=== PATIENT | male | born 2000 | race Caucasian/White ===

== ENCOUNTER 2019-02-28 16:28 | Emergency (ER) | payer OTHER ==
[~2019-02-28] VITALS: Ht 177.8 cm; Wt 77.1 kg
--- NOTE | 2019-02-28 16:28 | NUR ---
BIBA. PER EMS, OVERDOSED ON UNKNOWN DRUGS. PER EMS, PT WAS IN A [facility] [employer] AND THAT THE PT COLLAPSED FROM THE CHAIR AND HIT THE BACK OF HEAD. PER EMS, RESPIRATIONS WAS AT 6BPM AND WAS GIVEN NARCAN 2MG X2 AND PT HAD TO BE BAGGED. PT IS AWAKE, SCREAMING, KICKING, SPITTING. C-COLLAR ON PRIOR TO ARRIVAL. FULL CLEAR SPEECH. ER AT BEDSIDE FOR ASSESSMENT.
--- NOTE | 2019-02-28 16:30 | NUR ---
PT PLACED ON FULL FOLDING MACHINE TENDER.
--- NOTE | 2019-02-28 16:32 | NUR ---
PTS PETCO2 IS 40
[2019-02-28 16:36] VITALS: BP 135/45
--- NOTE | 2019-02-28 16:38 | NUR ---
ATTEMPTED TO SPEAK WITH PT---PT EXTREMELY AGITATED, SPITTING ATTEMPTING TO BITE---CURSING AT STAFF, STATING, "I WANT TO GET THE FUCK OUT OF HERE" NASAL TRUMPET REMOVED FROM LEFT NARE---FULL CLEAR SPEECH SCREAMING CONTINOUSLY SPIT MASK APPLIED
--- NOTE | 2019-02-28 16:46 | NUR ---
SPIT MASK REMOVED---PT AGREED WILL NOT SPIT
--- NOTE | 2019-02-28 16:51 | NUR ---
X-RAY AT BEDSIDE
--- NOTE | 2019-02-28 16:55 | NUR ---
PT UNABLE TO AMBULATE STEADY. PT PLACED BACK TO BED, PLACED ON FULL ARMATURE BALANCER. SAFETY ENSURED. WILL CONTINUE TO MONITOR.
[2019-02-28] MEDS ORDERED: NACL 0.9% 1,000 ML IV ONE ×4 (17:10→20:30)
--- NOTE | 2019-02-28 17:55 | NUR ---
Katie delong in ED - 02/28/19 at 1813 by MED PT'S V/S IS AT 83/33, HR: 54, R: 7, 98% 2LPM NC. NOTIFIED DR JAMESON.
--- NOTE | 2019-02-28 17:55 | NUR ---
PT'S V/S IS AT 83/33, HR: 54, R: 7, 98% 2LPM NC. PUPILS PINPOINT AT THIS TIME. PT UNRESPONSIVE TO CHEST RUB. NOTIFIED DR JAMESON AND CHARGE NURSE.
--- NOTE | 2019-02-28 17:58 | NUR ---
IV NARCAN 2 MG GIVEN ORDERED
[2019-02-28] MEDS ORDERED: NALOXONE 0.4 MG/ML VIAL IVP ONE ×3 (18:00→19:20)
[2019-02-28] MEDS ORDERED: NALOXONE PFS 2 MG/2 ML SYR ONE (18:10)
--- NOTE | 2019-02-28 18:13 | NUR ---
PT RESPONSIVE TO TOUCH. PERRL BRISK 3MM. WILL CONTINUE TO MONITOR.
--- NOTE | 2019-02-28 18:13 | NUR ---
PT RESPONSIVE AT THIS TIME. V/S 123/69, 47, 15, 100% 2LPM NC. CLEAR SPEECH.
[2019-02-28] MEDS ORDERED: AMMONIA AROMATIC 1 INHL INH ONE (18:19)
--- NOTE | 2019-02-28 18:20 | NUR ---
PT AWOKEN BY SHAKING. PT VERBALIZES " I WANT TO TELL YOU SOMETHING, MY GIRLFRIEND BROKE UP WITH ME YESTERDAY." PT WENT BACK TO SLEEP.
--- NOTE | 2019-02-28 18:25 | NUR ---
DR JAMESON AT BEDSIDE FOR PT RE EVALUATION
--- NOTE | 2019-02-28 18:35 | NUR ---
PT IS TRYING TO SIT UP, BUT GOES BACK TO SLEEP. CONVERSATES APPROPRIATELY.
--- NOTE | 2019-02-28 18:45 | NUR ---
PT IS AWAKEN WITH PATTING. PT MUMBLES AND GOES BACK TO SLEEP. PERRL SLUGGISH 2MM
--- NOTE | 2019-02-28 18:57 | NUR ---
DR JAMESON AT BEDSIDE FOR PT RE EVALUATION
--- NOTE | 2019-02-28 19:10 | NUR ---
Pt report given to DEYANIRA Carver. Transfer of care at this time.
--- NOTE | 2019-02-28 19:10 | NUR ---
ASSUMED CARE OF PT, PT SLIGHTLY AROUSABLE TO PAINFUL STIMULI; EYES PIN POINT AND NON REACTIVE; PT ATTACHED TO BEDSIDE HYDROGRAPHIC ENGINEER; SINUS JONATHAN 40-50, +SHALLOW RESPIRATIONS. PT ON 3L NC. WILL CONTINUE TO MONITOR.
[2019-02-28] MEDS ORDERED: FLUMAZENIL 0.5 MG/5 ML VIAL IVP ONE ×5 (19:20→22:56)
--- NOTE | 2019-02-28 19:35 | NUR ---
PT OPENING AND CLOSING EYES. RESPIRATIONS AND HEART RATE INCREASING. WILL CONTINUE TO MONITOR.
--- NOTE | 2019-02-28 19:47 | NUR ---
PT AWAKE AND ALERT, SPEAKING IN CLEAR AND COMPLETE SENTENCES. PT ON THE PHONE TALKING TO FATHER. VSS.
--- NOTE | 2019-02-28 19:55 | NUR ---
DR. FLANAGAN AWARE PT WAS GIVEN 1MG OF FLUMAZENIL, PT IS AWAKE AND ALERT VITAL SIGNS HAVE IMPROVED, DR. DARNELL TO GIVE 0.5 MG AT THIS TIME.
--- NOTE | 2019-02-28 20:46 | NUR ---
PT AROUSABLE TO STERNAL RUB. PT GCS OF 14, PT CONFUSED OF CURRENT PLACE AND MUMBLING WORDS. ERMD AWARE, WILL CONTINUE TO MONITOR.
[2019-02-28 20:49] LABS: BASOPHILS % (AUTO) 0.5 % (0.0-2.0); EOSINOPHILS # (AUTO) 0.1 K/uL (0-0.4); EOSINOPHILS % (AUTO) 1.1 % (0.0-4.0); HEMATOCRIT 43.7 % (36-52); HEMOGLOBIN 14.7 g/dL (12.0-18.0); LYMPHOCYTES # (AUTO) 1.5 K/uL (2.0-11.5); LYMPHOCYTES % (AUTO) 27.2 % (20.5-51.1); MEAN CORPUSCULAR HEMOGLOBIN 31 pg (27-31); MEAN CORPUSCULAR HGB CONC 34 g/dL (33-37); MEAN CORPUSCULAR VOLUME 91.7 fL (80-94); MONOCYTES # (AUTO) 0.3 K/uL (0.8-1.0); MONOCYTES % (AUTO) 6.1 % (1.7-9.3); NEUTROPHILS # (AUTO) 3.7 K/uL (1.8-7.7); NEUTROPHILS % (AUTO) 65.1 % (42.2-75.2); PLATELET COUNT (AUTO) 161 K/uL (140-450); RED BLOOD CELL COUNT(AUTO) 4.77 MIL/uL (4.20-6.10); RED CELL DISTRIBUTION WIDTH 12.9 % (11.6-13.7); WHITE BLOOD COUNT (AUTO) 5.7 K/uL (4.5-11.0)
[2019-02-28 21:02] LABS: ALBUMIN 3.4 g/dL (3.4-5.0); ANION GAP 12.6 (8-16); CARBON DIOXIDE 26.2 mmol/L (21-32); POTASSIUM 3.8 mmol/L (3.5-5.1); TOTAL BILIRUBIN 0.5 mg/dL (0.0-1.0)
--- NOTE | 2019-02-28 21:30 | NUR ---
PT GCS 11, PT UNCOOPERATIVE, AROUSABLE TO PAINFUL STIMULI, AND CONFUSED. PT BREATHING EQUAL AND UNLABORED.
--- NOTE | 2019-02-28 22:10 | NUR ---
#14 straight catheter utilizing sterile technique. Immediate return of urine noted. Bedside drainage bag placed below level of bladder. Catheter removed tip intact. Urine sample collected and sent to lab. Pt tolerated procedure well.
[2019-02-28 22:17] LABS: APPEARANCE,URINE CLEAR (CLEAR); BILIRUBIN,URINE NEGATIVE (NEGATIVE); BLOOD, URINE NEGATIVE (NEGATIVE); COLOR,URINE YELLOW (YELLOW); LEUKOCYTE ESTERASE ,URINE NEGATIVE (NEGATIVE); NITRITE, URINE NEGATIVE (NEGATIVE); UGLUCOSE NEGATIVE (NEGATIVE)
--- NOTE | 2019-02-28 22:30 | NUR ---
SHALLOW BREATHING, SINUS JONATHAN. PT AROUSABLE TO STERNAL RUB, STATES HE WANTS TO GET UP AND LEAVE, ENCORAGED TO STAY. PT POSITIONED FOR COMFORT. Addendum: 02/28/19 at 2249 by [email or web address] SHALLOW BREATHING, SINUS JONATHAN. PT AROUSABLE TO STERNAL RUB, STATES HE WANTS TO GET UP AND LEAVE, ENCORAGED TO STAY. PT POSITIONED FOR COMFORT. BENJIE FONTANA.
[2019-02-28 22:31] LABS: BARBITURATE, URINE NEG. ng/ml (NEG <=200); BENZODIAZEPINE, URINE POS. ng/mL (NEG <=200); CANNABINOID, URINE POS. ng/mL (NEG <=50); COCAINE, URINE NEG. ng/mL (NEG <=300); OPIATE, URINE NEG. ng/mL (NEG <=2000); PHENCYCLIDINE SCREEN,URINE NEG. ng/mL (NEG <=25)
--- NOTE | 2019-02-28 22:55 | NUR ---
PT AWAKE AND ALERT, BREATHING EQUAL AND UNLABORED. SPEAKING IN CLEAR AND COMPLETE SENTENCES. PT CURSING AT STAFF.
--- NOTE | 2019-02-28 23:00 | NUR ---
SECURITY AT BEDSIDE.
--- NOTE | 2019-02-28 23:04 | NUR ---
PT STATES HE IS REFUSING TO HAVE PULSE OX ON FINGER, STATING "I REFUSE".
--- NOTE | 2019-02-28 23:17 | NUR ---
PT TAKING OFF CARDIAC MONITORING EQUIPMENT, REFUSING TO BE PLACED ON BEDSIDE MONITOR.
--- NOTE | 2019-02-28 23:23 | NUR ---
PT PLACED BACK ON BEDSIDE LOCK SETTER AND 3L NC.
--- NOTE | 2019-02-28 23:54 | NUR ---
PT REFUSING TO BE ATTACHED TO BEDSIDE WATER TRUCK DRIVER, PT STATING TO CALL THE [facility] ON HIM.
--- NOTE | 2019-03-01 00:01 | NUR ---
PT AROUSABLE TO STERNAL RUB. BREATHING EQUAL AND UNLABORED. RESP 12. SKIN WARM AND DRY. RADIAL PULSES STRONG, JONATHAN AT 50. WILL CONTINUE TO MONITOR.
--- NOTE | 2019-03-01 03:15 | NUR ---
PT AROUSABLE TO VOICE, PT OPENING AND CLOSING EYE, AWAKE AND ALERT. PT REORIENTED TO TIME AND LOCATION. BREATHING EQUAL AND UNLABORED.
--- NOTE | 2019-03-01 03:20 | NUR ---
PT REFUSED IV; D/C TIP INTACT; BANDAGE AND PRESSURE APPLIED, BLEEDING CONTROLLED. SIGHT BENIGN.
--- NOTE | 2019-03-01 03:24 | NUR ---
PT AMBULATED W/ UNSTEADY GATE AND W/ ASSISTANCE. ERMD AWARE.
--- NOTE | 2019-03-01 03:54 | NUR ---
PT IS UNSTEADY TO WALK BY HIMSELF. PT IS BEING NON COMPLIANT WITH MD AND CLICKING MACHINE OPERATOR. PT WAS INSTRUCTED TO STAY IN BED FOR SAFETY PRECAUTIONS. SECURITY WAS CALLED TO HELP MONITOR PT THAT IS ARGUMENTIVE AND IS BEING INAPPROPRIATE WITH STAFF. IN COMMUNICATIN WITH [facility] FOR POSSIBLE TRANSFER PER MD FOR FURTHER EVALUATION.
--- NOTE | 2019-03-01 04:15 | NUR ---
Written and verbal after care instructions given and explained. Patient verbalized understanding. All questions addressed prior to discharge. Advised to follow up with PMD. Patient states he waiting for mom to pick him up from [facility]. Will continue to monitor.
--- NOTE | 2019-03-01 04:35 | NUR ---
PT IS REFUSING A TRANSFER TO [place]. PT REFUSED CT THAT WAS ORDERED BY BENJIE. PT IS A/OX4. PT FEELS HE IS OK TO GO HOME AND IS TRYING TO GET A RIDE HOME BY FAMILY OR FRIENDS. MILENA CHUNG MADE AWARE
--- NOTE | 2019-03-01 04:45 | NUR ---
PT ON THE PHONE WITH HIS MOTHER ARRANGING FOR A RIDE HOME, MOTHER CALLED [facility] LOOKING FOR INFORMATION ON PTS REASON FOR BEING SEEN IN THE ER; MOTHER WAS ADVISED ON PT CONFIDENCIALITY, AND WE ARE NOT ALLOWED TO GIVE OUT PT MEDICAL INFORMATION. MOTHER STATED TO SON SHE WILL COME AND PICK HIM UP. WILL CONTINUE TO MONITOR.
--- NOTE | 2019-03-01 05:05 | NUR ---
PT BACK IN BED FROM AMBULATING TO BR W/ STEADY GAIT.
--- NOTE | 2019-03-01 05:07 | NUR ---
PT MOM IS TO PICK HIM UP. MILENA CHUNG MADE KNOWN
--- NOTE | 2019-03-01 05:20 | NUR ---
PT AMBULATED TO THE NURSES STATION AND TO BATHROOM. PT IS STEADY WHILE AMBULATING.
--- NOTE | 2019-03-01 05:25 | NUR ---
PT ON THE PHONE WITH [place], SPEAKING IN CLEAR AND COMPLETE SENTENCES.
--- NOTE | 2019-03-01 05:29 | NUR ---
PT STATES HE DOES NOT WANT TO STAY HERE ANYMORE, PT ENCOURAGED TO WAIT FOR A RIDE; PT REFUSING AND STATES "YOU CAN NOT KEEP ME HERE, I AM SOBER. CALL THE ENVIRONMENTAL LAWYER THEN". PT WALKED OFF OF ER UNIT AND OUT OF ER LOBBY. ERMD AWARE.
--- NOTE | 2019-03-01 05:29 | NUR ---
PT WAS GIVEN D/C PAPERS AND UNDERSTOOD OUTPATIENT CARE. PT WAS INSTRUCTED TO FOLLOW UP WITH PCP FOR REEVALUATION. PT FEELS THAT HE IS OK TO GO. PT STATED WE CAN NOT KEEP HIM HERE AND ASKED TO LEAVE. PT IS ALERT TO TIME, PLACE, AND KNOWS HIS SURROUNDINGS. PT UNDERSTAND WHAT HE DID PRIOR TO ER. PT DENIES HARM TO SELF OR TO OTHERS. PT MOM IS REFUSING TO PICK HIM UP DUE TO PERSONAL FAMILY PROBLEMS. MIHIR SOLORIOMACHINE TOOL TECHNOLOGY INSTRUCTOR OBSERVED PT AND IS AWARE OF PT STATUS. PT HAD STEADY GAIT PRIOR TO D/C. VSS.
[2019-03-01 05:36] VITALS: BP 141/66
== END 2019-03-01 05:29 | disposition home or self-care (01) ==
LOC: MED 16:28
DX: F19.10 Other psychoactive substance abuse, uncomplicated (principal)
CPT/HCPCS: 36415; 72040; 80053; 80305; 81003; 85025; 96374; 96375; 96376; 99284; G0482; J2310; J3490; J7030; Q0092